=== PATIENT | female | born 1970 | race African-American/Black ===

== ENCOUNTER 2017-07-18 01:03 | Emergency (ER) | payer SELFPAY ==
[~2017-07-18 01:03] MED LIST: Lidocaine 1% PF 5 ML VIAL ONE; cefTRIAXone\\ROCEPHIN 500 MG VIAL ONE
[2017-07-18] MEDS ORDERED: Bacitracin Zinc 1 Packet ONE (01:28)
== END 2017-07-18 02:35 | disposition home or self-care (01) ==
LOC: ERS 01:03
DX: L03.031 Cellulitis of right toe (principal); E11.9 Type 2 diabetes mellitus without complications; Z86.73 Personal history of transient ischemic attack (TIA), and cerebral infarction without residual deficits; Z79.4 Long term (current) use of insulin; Z79.82 Long term (current) use of aspirin; Z79.899 Other long term (current) drug therapy
CPT/HCPCS: 96372; J0696; J2001

== ENCOUNTER 2017-08-06 23:12 | Observation (INO) | payer SELFPAY ==
[2017-08-06 23:54] LABS: ALT (SGPT) 25 U/L (8-55); AST (SGOT) 24 U/L (5-34); Alkaline Phosphatase 88 U/L (40-150); Anion Gap 13 mmol/L (10-20); BUN (Urea Nitrogen) 15 mg/dL (7.0-18.7); Bilirubin, Total 0.2 mg/dL (0.2-1.2); Calc. Creatinine Clearance 0 mL/min (70-130); Calcium 9.8 mg/dL (7.8-10.44); Carbon Dioxide 28 mmol/L (22-29); Chloride 102 mmol/L (98-107); Estimated GFR-MDRD 86; Globulin 3.6 g/dL (2.4-3.5); Glucose 277 mg/dL (70-105); Protein, Total 7.6 g/dL (6.0-8.3); Sodium 139 mmol/L (136-145)
[2017-08-06 23:59] LABS: CKMB 0.6 ng/mL (0-6.6); Eosinophils 3 % (0-10); Lymphocytes 35 % (21-51); MDiff Complete? YES; Mean Corpuscular Hemoglobin 29.4 pg (27.0-31.0); Mean Corpuscular Volume 86.4 fl (81.0-99.0); Mean Platelet Volume 7.8 fL (7.4-10.4); Monocytes 3 % (0-10); Neutrophil 48 % (42-75); PLT Morphology Comment Appears Adequate; Platelet Count 204 thou/uL (130-400); RBC Distribution Width 12.1 % (11.5-14.5); RBC Morphology Normal; Reactive Lymphocytes 11 % (0-10); Red Blood Cell (RBC) Count 4.75 mill/uL (4.20-5.40); Troponin I Less than 0.010 ng/mL (< 0.028); White Blood Cell (WBC) Count 8.7 thou/uL (4.8-10.8)
[2017-08-07] MEDS ORDERED: Ondansetron HCl/PF 4 MG/2 ML Vial IVP PRN (02:59)
[2017-08-07] MEDS ORDERED: Ondansetron ODT 4 MG TAB SL PRN (02:59)
[2017-08-07] MEDS ORDERED: Acetaminophen 325 MG TAB PO PRN ×2 (02:59→04:56)
[2017-08-07 03:03] VITALS: BMI 37.9
[2017-08-07 03:26] LABS: Troponin I Less than 0.010 ng/mL (< 0.028)
[2017-08-07] MEDS ORDERED: Dextrose 50% Abboject 50 ML SYRINGE SLOW IVP PRN (04:56)
[2017-08-07] MEDS ORDERED: Nitroglycerin 0.4 MG TAB (25 Tab Bottle) PO PRN (04:56)
[2017-08-07] MEDS ORDERED: HumaLOG 300 UNITS/3 ML VIAL SC PRN (04:56)
[2017-08-07] MEDS ORDERED: Acetaminophen 650 MG Suppository PR PRN (04:56)
[2017-08-07] MEDS ORDERED: Dextrose 5% in Water 1,000 ML IV PRN (04:56)
--- NOTE | 2017-08-07 05:51 | HP ---
PRIMARY CARE PROVIDER: Tasneem Domingo MD CHIEF COMPLAINT: Chest pain. HISTORY OF PRESENT ILLNESS: Ms. Thacker is a pleasant 46-year-old lady who was seen at [facility] on 08/07/2017. She reports that over the last 3 days, she has had on and off chest discomfort. She describes it as a sensation of tightness across her chest, nonradiating, accompanied by shortness of breath, worse wi th exertion and improving with rest. She denies any cough, fevers, chills, nausea, or lightheadednes s. She denies any abdominal pain. REVIEW OF SYSTEMS: The following complete review of systems was negative, unless otherwise mentioned in the HPI or below: Constitutional: Weight loss or gain, ability to conduct usual activities. Sk in: Rash, itching. Eyes: Double vision, pain. ENT/Mouth: Nose bleeding, neck stiffness, pain, te nderness. Cardiovascular: Palpitations, dyspnea on exertion, orthopnea. Respiratory: Shortness of breath, wheezing, cough, hemoptysis, fever or night sweats. Gastrointestinal: Poor appetite, abdom inal pain, heartburn, nausea, vomiting, constipation, or diarrhea. Genitourinary: Urgency, frequenc y, dysuria, nocturia. Musculoskeletal: Pain, swelling. Neurologic/Psychiatric: Anxiety, depressio n. Allergy/Immunologic: Skin rash, bleeding tendency. PAST MEDICAL HISTORY: Significant for diabetes mellitus type 2, dyslipidemia, TIA, benign breast cys t and normal stress test in 2014. PAST SURGICAL HISTORY: , hysterectomy. SOCIAL HISTORY: The patient denies tobacco use or recreational drug use. Reports occasional alcohol use. FAMILY HISTORY: Significant for heart disease in both grandmothers. ALLERGIES: SULFA. CURRENT MEDICATIONS: Aspirin 81 mg daily, glipizide 10 mg 2 times a day, Levemir insulin 30 units da krista, and metformin 1000 mg 2 times a day. PHYSICAL EXAMINATION: GENERAL: Mr. Thacker is awake and alert, not in acute distress. She is obese, with a BMI of 37.9. VITAL SIGNS: Blood pressure is 102/64, pulse is 67. She is breathing at rate of 16, and saturating 95% on room air. She is afebrile. EYES: No scleral icterus. No conjunctival pallor. ENT: Moist mucosal membranes. No oropharyngeal erythema or exudates. NECK: Supple, nontender, normal range of movement. Trachea is midline. RESPIRATORY: Accessory muscles of breathing are not active. Chest wall movements are symmetric bila terally. LUNGS: Clear to auscultation without wheeze, rhonchi, or crepitations. CARDIOVASCULAR: S1 and S2 are heard, regular. LUNGS: Peripheral pulses palpable. No carotid bruit, no pericardial rub. ABDOMEN: Soft, nontender, bowel sounds are heard. No hepatomegaly, no splenomegaly. NEUROLOGIC: Cranial nerves II through XII intact. Deep tendon reflexes are 2+. MUSCULOSKELETAL: Power is 5/5 in all 4 extremities. SKIN: No rashes or subcutaneous nodules. LYMPHATIC: No cervical lymphadenopathy. PSYCHIATRIC: Normal mood, normal affect. Patient is oriented to person, place, and time. LABORATORY DATA: Ms. Thacker's labs and investigations were reviewed. I reviewed her electrocardiogra m, which shows normal sinus rhythm, no ST changes to suggest an acute coronary syndrome. She does green ve T-wave flattening/inversion in lead 1 and aVL. I also reviewed her chest x-ray, which does not sh ow any pulmonary infiltrates. She has an unremarkable CBC, unremarkable comprehensive metabolic prof ile, and troponin I that is negative x2. ASSESSMENT AND PLAN: Mr. Thakcer is a pleasant 46-year-old lady who was seen at [facility] on 08/07/2017. Her problem list includes: 1. Chest pain: Etiology unclear, but given her significant risk factors for coronary artery disease . She will be admitted to the hospital on library monitor. Stress test will be ordered to evaluat e for coronary artery disease. 2. Diabetes mellitus: Resume home medications, start Accu-Cheks and insulin sliding scale. 3. History of transient ischemic attack: Stable. 4. Dyslipidemia: The patient is currently not on any medications for dyslipidemia. She will need t o follow up with her primary care provider. Many thanks for allowing me to participate in your patient's care. Please feel free to contact me wi th any questions or concerns. LEVEL OF RISK: High. LEVEL OF COMPLEXITY: High.
[2017-08-07 06:07] LABS: Troponin I Less than 0.010 ng/mL (< 0.028)
[2017-08-07] MEDS ORDERED: metFORMIN XR 500 MG TAB PO SCH (08:00)
--- NOTE | 2017-08-07 08:50 | RAD ---
PORTABLE UPRIGHT FRONTAL CHEST RADIOGRAPH: Date: 08/07/17 COMPARISON: 11/04/14. HISTORY: Chest pain and shortness of breath. FINDINGS: Lungs are clear. Heart and mediastinal contours are stable. IMPRESSION: No acute findings. POS: [facility]
[2017-08-07] MEDS ORDERED: Insulin Detemir 100 UNITS/ML 30 UNITS in Pre-Filled Syringe 1 EACH SC SCH (09:00)
[2017-08-07] MEDS ORDERED: Aspirin 325 MG TAB PO SCH ×2 (09:00)
[2017-08-07] MEDS ORDERED: Non-Formulary Item 1 EACH (Insulin Detemir [Levemir Flextouch] 30 UNIT) SC SCH (09:00)
[2017-08-07] MEDS ORDERED: Aspirin 81 mg Enteric Coated Tablet PO SCH (09:00)
[2017-08-07] MEDS ORDERED: glipiZIDE 5 MG TAB PO SCH (09:00)
[2017-08-07] MEDS ORDERED: Enoxaparin Sodium 40 MG/0.4 ML SYRINGE SC SCH (09:00)
[2017-08-07 11:48] VITALS: BP 105/63; TEMP 97.7
--- NOTE | 2017-08-07 12:00 | NM ---
NUCLEAR MEDICINE CARDIAC STRESS TEST WITH EJECTION FRACTION: HISTORY: Chest pain. COMPARISON: Nuclear medicine stress test from 2015. TECHNIQUE: Stress only performed after the intravenous administration of 18.7 mCi technetium-99m sestamibi. FINDINGS: There is normal radiotracer uptake of the left ventricle. No evidence of abnormal decreased uptake to suggest a scar or ischemic focus. Normal wall motion. Calculated ejection fraction is 74%. IMPRESSION: Normal nuclear medicine stress only test. POS: [facility]
[2017-08-07] MEDS ORDERED: Sucralfate 1 GM TAB PO SCH (13:00)
[2017-08-07] MEDS ORDERED: ADENOSINE 60 MG/20 ML VIAL ONE (15:44)
== END 2017-08-07 15:34 | disposition home or self-care (01) ==
LOC: ERS 23:12 → 2SW 08-07 01:02
PROVIDERS: ADMIT Internal Medicine; ATTEND Internal Medicine
DX: R07.89 Other chest pain (principal); E11.9 Type 2 diabetes mellitus without complications; E78.5 Hyperlipidemia, unspecified; Z79.4 Long term (current) use of insulin; Z79.82 Long term (current) use of aspirin; Z88.2 Allergy status to sulfonamides; Z90.710 Acquired absence of both cervix and uterus; Z72.89 Other problems related to lifestyle; Z98.891 History of uterine scar from previous surgery; Z86.73 Personal history of transient ischemic attack (TIA), and cerebral infarction without residual deficits
CPT/HCPCS: 36415; 36416; 71045; 78452; 80053; 82550; 82553; 84484; 85025; 93005; 93017; 94760; A9500; G0378; J0153; J1815

== ENCOUNTER 2018-09-30 16:05 | Outpatient (CLI) | payer BC ==
--- NOTE | 2018-10-03 07:57 | MMO ---
Bilateral MAMMO Bilat Screen [facility]. CLINICAL HISTORY: Patient is 47 years old and is seen for screening. The patient has the following family history of breast cancer: paternal aunt and maternal aunt, great. The patient has no personal history of cancer. The patient has a history of left cyst aspiration in 1979 - Benign. and right cyst aspiration in 1981 - Benign.. VIEWS: The views performed were: bilateral craniocaudal with tomosynthesis and bilateral mediolateral oblique with tomosynthesis. FILMS COMPARED: The present examination has been compared to prior imaging studies performed at [facility] on 01/27/2008, 02/01/2009, 12/12/2010 and 01/26/2012. MAMMOGRAM FINDINGS: There are scattered fibroglandular densities. There are stable benign appearing calcifications seen in both breasts. There are no suspicious masses, suspicious calcifications, or new areas of architectural distortion. IMPRESSION: THERE IS NO MAMMOGRAPHIC EVIDENCE OF MALIGNANCY. A ROUTINE FOLLOW-UP MAMMOGRAM IN 1 YEAR IS RECOMMENDED. THE RESULTS OF THIS EXAM WERE SENT TO THE PATIENT. ACR BI-RADS Category 2 - Benign finding MAMMOGRAPHY NOTE: 1. A negative mammogram report should not delay a biopsy if a dominant of clinically suspicious mass is present. 2. Approximately 10% to 15% of breast cancers are not detected by mammography. 3. Adenosis and dense breasts may obscure an underlying neoplasm.
== END 2018-09-30 16:06 | disposition home or self-care (01) ==
LOC: BICMAMMO 16:05
PROVIDERS: ATTEND Family Medicine
DX: Z12.31 Encounter for screening mammogram for malignant neoplasm of breast (principal); Z80.3 Family history of malignant neoplasm of breast
CPT/HCPCS: 77063; 77067

== ENCOUNTER 2019-09-25 15:02 | Outpatient (CLI) | payer BC ==
--- NOTE | 2019-09-25 16:54 | MMO ---
Bilateral MAMMO Bilat Screen [facility]. CLINICAL HISTORY: Patient is 48 years old and is seen for screening. The patient has the following family history of breast cancer: paternal aunt and maternal aunt, great. The patient has no personal history of cancer. The patient has a history of left cyst aspiration in 1979 - Benign. and right cyst aspiration in 1981 - Benign.. VIEWS: The views performed were: bilateral craniocaudal with tomosynthesis and bilateral mediolateral oblique with tomosynthesis. FILMS COMPARED: The present examination has been compared to prior imaging studies performed at [facility] on 02/01/2009, 12/12/2010, 01/26/2012 and 09/30/2018. This study has been interpreted with the assistance of computer-aided detection. MAMMOGRAM FINDINGS: There are scattered fibroglandular densities. There is a stable asymmetry seen in the upper-outer region of the left breast. There are no suspicious masses, suspicious calcifications, or new areas of architectural distortion. IMPRESSION: THERE IS NO MAMMOGRAPHIC EVIDENCE OF MALIGNANCY. A ROUTINE FOLLOW-UP MAMMOGRAM IN 1 YEAR IS RECOMMENDED. THE RESULTS OF THIS EXAM WERE SENT TO THE PATIENT. ACR BI-RADS Category 2 - Benign finding MAMMOGRAPHY NOTE: 1. A negative mammogram report should not delay a biopsy if a dominant of clinically suspicious mass is present. 2. Approximately 10% to 15% of breast cancers are not detected by mammography. 3. Adenosis and dense breasts may obscure an underlying neoplasm. Reported by: YVES ALVA MD Electonically Signed: [id number]
== END 2019-09-25 15:03 | disposition home or self-care (01) ==
LOC: BICMAMMO 15:02
PROVIDERS: ATTEND Family Medicine
DX: Z12.31 Encounter for screening mammogram for malignant neoplasm of breast (principal); Z80.3 Family history of malignant neoplasm of breast
CPT/HCPCS: 77063; 77067